=== PATIENT | male | born 1950 | race Caucasian/White ===

== ENCOUNTER 2016-08-13 03:18 | Emergency (ER) | payer OTHER ==
--- NOTE | 2016-08-13 03:51 | CT REPORT ---
HISTORY: Fall. COMPARISON: None. TECHNIQUE: Axial non-contrast images obtained from skull vertex through foramen magnum. FINDINGS: There is no evidence of a mass lesion, extra-axial fluid collection or acute hemorrhage. There is n o evidence of acute ischemia or infarction. The ventricles and sulci are normal in appearance. The visualized portions of the orbits and paranasal sinuses are normal in appearance. IMPRESSION: No CT evidence of acute intracranial abnormalities. COMMUNICATION: Dr. Rafy Knight discussed the pertinent results with the ordering physician at 08/13/2016 3:48 AM . Final Electronic Signature: This report was electronically signed by Kleber Knight MD on 3:48 AM. jesús /
--- NOTE | 2016-08-13 04:27 | RADIOLOGY REPORT ---
AP PORTABLE CHEST RADIOGRAPH CLINICAL INFORMATION: Fall. COMPARISON: None. FINDINGS: Lungs are adequately inflated. There is no consolidation, pneumothorax, or displaced fractu re. Costophrenic angles are clear. Cardiomediastinal silhouette is normal in size. IMPRESSION: 1. No acute cardiopulmonary abnormalities. 2. No displaced fractures. Final Electronic Signature: This report was electronically signed by Kleber Knight MD on 7 4:24 AM. jesús /
[2016-08-13] MEDS ORDERED: ACETAMINOPHEN 325 MG TABLET PO ONE (05:09)
--- NOTE | 2016-08-13 07:22 | ER NURSING DOCUMENTATION ---
Nurse's Notes [facility] Name:Álvaro Nunez Age:65 yrs Sex:Male :1950 Arrival Date:08/13/2016 Time:03:18 BedTrauma A Private MD: Diagnosis:Post Concussion Syndrome;Head Contusion, Unspecified Part of Head Presentation: 08/13 03:21 Notified ED Physician of [place] notified. 03:21 Acuity: MALOU 2 lb 03:23 Presenting complaint: EMS states: pt fell in bathroom, struck head, oriented x 2 no lb recollection of incident. Transition of care: Other [facility]. Mechanism of Injury: Fall. 03:23 Method Of Arrival: EMS: 420 lb 03:30 Care prior to arrival: IV initiated. Trauma event details: Injury occurred in the [facility] Injury occurred in a public building. Injury occurred August 13, 2016 Injury occurred at 03:00. Triage Assessment: 03:25 General: Appears distressed, Behavior is anxious, cooperative. Pain: Denies pain. lb Neuro: Level of Consciousness is awake, alert, obeys commands, Oriented to person, place, Solderer Assembler are equal bilaterally Moves all extremities. Speech is normal, Facial symmetry appears normal, Pupils are PERRLA, Denies blurred vision headache. Historical: - Allergies: PENICILLINS; - Home Meds: 1. Tenormin oral 2. Aspirin Oral - PMHx: Hypertension; - PSHx: hand; - Tetanus: < 10 years < 10 years. - Ebola Screening: : Patient negative for fever greater than or equal to 101.5 degrees Fahrenheit, and additional compatible Ebola Virus Disease symptoms. Patient denies exposure to infectious person. Patient denies travel to an Ebola-affected area in the 21 days before illness onset. No symptoms or risks identified at this time. . - Immunization history: Flu Vaccine < 1 year. - Social history: Smoking status: Patient states was never smoker of tobacco. Patient uses alcohol only on a social basis. - Code Status:: Full code. Screenin:30 Infectious Disease Risk None. Abuse screen: Denies threats or abuse. Denies injuries lb from another. Nutritional screening: No deficits noted. 03:32 Tuberculosis screening: No symptoms or risk factors identified. lb Primary Survey: 03:31 Airway: patent. Breathing/Chest: Respiratory pattern: regular, Respiratory effort: lb spontaneous, unlabored, Breath sounds: clear. Circulation: Cardiac rhythm: sinus rhythm Pulses: Skin color: pink. Assessment: 03:30 See Triage Assessment done by same RN. lb 03:48 Reassessment: on arrival pt perseverating. lb 05:01 Reassessment: pt c/o headache and left side rib pain. medicated. lb 06:25 Reassessment: has been up to br to void with minimal assist, steady on his feet. Is lb starting to remember bits and pieces at this time.. 07:19 General: pt still has troubles remembering the event. pt is stiff and sore but able to st move and walk.. Vital Signs: 03:28 BP 147 / 69; Pulse 70; Resp 20; Pulse Ox 99% on 2 lpm NC; Weight 64.86 kg; Height 6 ft. lb (182.88 cm); Pain 0/10; 04:21 BP 119 / 62; Pulse 74; Resp 14; Pulse Ox 93% on R/A; lb 06:25 BP 116 / 60; Pulse 76; Resp 14; Pulse Ox 94% on R/A; Pain 3/10; lb 07:19 BP 136 / 72; Pulse 79; Pulse Ox 95% on R/A; st 03:28 Body Mass Index 19.39 (64.86 kg, 182.88 cm) lb [place] Coma Score: 07:19 Eye Response: spontaneous(4). Verbal Response: confused(4). Motor Response: obeys st commands(6). Total: 14. Trauma Score (Adult): 03:32 Eye Response: spontaneous(1); Verbal Response: confused(1); Motor Response: obeys lb commands(2); Systolic BP: > 89 mm Hg(4); Respiratory Rate: 10 to 29 per min(4); [place] Score: 14; Trauma Score: 12 ED Course: 03:19 Patient arrived in ED. ma1 03:21 Alva López is Primary Nurse. lb 03:22 Triage completed. lb 03:30 Valuables Given to family. Patient has correct armband on for positive identification. lb Placed in gown. Bed in low position. Side rails up X2. 03:36 Daren Dasilva MD is Attending Physician. jm 03:[address] ds2 03:[address] ds2 04:12 Port Xray Completed. ds2 Administered Medications: 05:01 Drug: Tylenol 650 mg; Route: PO; lb 06:27 Follow up: Response: Pain is decreased lb Output: 06:25 Urine: 200ml (Voided); Total: 200ml. lb Outcome: 04:17 Discharge ordered by . roseann 07:20 Discharged to home ambulatory. st 07:20 Condition: stable 07:20 Discharge instructions given to patient, family, significant other, Instructed on discharge instructions, follow up and referral plans. 07:21 [address] ED[address] st Signatures: Kelly Saleem, RN RN Daren Avina MD MD jm Scarbrough, Dayna ds2 Alva López Melissa ri1
--- NOTE | 2016-08-13 07:22 | ER PHYSICIAN DOCUMENTATION ---
Physician Documentation [facility] Name:Álvaro Nunez Age:65 yrs Sex:Male :1950 Arrival Date:08/13/2016 Time:03:18 BedTrauma A Private MD: Daren Gallo Disposition: 08/13/16 04:17 Discharged to Home/Self Care. Impression: Post Concussion Syndrome, Head Contusion, Unspecified Part of Head. - Condition is Fair. - Discharge Instructions: Brain Concussion - CONCUSSION, No Wake Up. - Medical Reconciliation form form. - Follow up: Private Physician; When: As needed; Reason: Continuance of care. - Problem is new. - Symptoms are unchanged. HPI: 08/13 11:31 This 65 yrs old Male presents to ER via EMS with complaints of Fall Injury. 11:31 Details of fall: The patient fell from an upright position, while walking. Onset: The symptom(s)/episode began/occurred just prior to arrival. Associated injuries: The patient sustained injury to the head, contusion. Associated signs and symptoms: Pertinent positives: confusion, memory problems, Loss of consciousness: the patient experienced loss of consciousness. Severity of symptoms: in the emergency department the symptoms are unchanged. The patient has not experienced similar symptoms in the past. The patient has not recently seen a physician. heard a loud thump in the bathroom of their hotel at the [place]. She found him on the floor. When she realized how confused he was she called 911. EMS says he is perseverating pretty significantly. Pt has a LEY and L side pain in his ribs. Pt denies any other pain. . Historical: - Allergies: PENICILLINS; - Home Meds: 1. Tenormin oral 2. Aspirin Oral - PMHx: Hypertension; - PSHx: hand; - Tetanus: < 10 years < 10 years. - Ebola Screening: : Patient negative for fever greater than or equal to 101.5 degrees Fahrenheit, and additional compatible Ebola Virus Disease symptoms. Patient denies exposure to infectious person. Patient denies travel to an Ebola-affected area in the 21 days before illness onset. No symptoms or risks identified at this time. . - Immunization history: Flu Vaccine < 1 year. - Social history: Smoking status: Patient states was never smoker of tobacco. Patient uses alcohol only on a social basis. - Code Status:: Full code. ROS: 04:00 Constitutional: Negative for fever. jm 04:00 Eyes: Negative for blurry vision, visual disturbance. 04:00 ENT: Positive for injury or acute deformity, contusion. 04:00 Neck: Negative for injury or acute deformity. 04:00 Cardiovascular: Positive for chest pain. 04:00 Respiratory: Negative for cough, shortness of breath. 04:00 Abdomen/GI: Negative for abdominal pain, nausea, vomiting, diarrhea. 04:00 Back: Negative for pain at rest, pain with movement. 04:00 MS/extremity: Negative for injury or acute deformity. 04:00 Skin: Positive for abrasion(s). 04:00 Neuro: Positive for altered mental status, headache. 04:00 All other systems are negative. Exam: 04:00 Constitutional: The patient appears alert, awake. jm 04:00 Head/face: Noted is abrasion(s), that are mild, of the left cheek, contusion, that is superficial, Sinus tenderness, is not appreciated. 04:00 Eyes: Periorbital structures: ecchymosis, that is mild, on the left lower eyelid, Pupils: equal, round, and reactive to light and accomodation, Extraocular movements: intact throughout, Conjunctiva: normal. 04:00 ENT: Mouth: is normal, Voice: is normal. 04:00 Neck: C-spine: appears grossly normal, Thyroid: appears normal. 04:00 Chest/axilla: Inspection: normal, Palpation: crepitus, is not appreciated, tenderness, that is moderate, of the left lateral anterior chest and left lateral posterior chest, that totally reproduces the patient's complaints. 04:00 Cardiovascular: Rate: normal, Rhythm: regular. 04:00 Respiratory: the patient does not display signs of respiratory distress, Respirations: normal, Breath sounds: are normal. 04:00 Abdomen/GI: Bowel sounds: normal, Palpation: abdomen is soft and non-tender. 04:00 Musculoskeletal/extremity: Extremities: grossly normal except: Weight bearing: able to fully bear weight. 04:00 Neuro: Mentation: able to follow commands, confused, Memory: immediate memory is impaired, recent memory is impaired, Cranial nerves: grossly normal, Cerebellar function: normal finger to nose testing, Pt w persistent perseveration about why he is here, what happened, why he is in pain, date, time, and where he is. . 04:00 Psych: Behavior/mood is pleasant, cooperative, Affect is calm. Vital Signs: 03:28 BP 147 / 69; Pulse 70; Resp 20; Pulse Ox 99% on 2 lpm NC; Weight 64.86 kg; Height 6 ft. lb (182.88 cm); Pain 0/10; 04:21 BP 119 / 62; Pulse 74; Resp 14; Pulse Ox 93% on R/A; lb 06:25 BP 116 / 60; Pulse 76; Resp 14; Pulse Ox 94% on R/A; Pain 3/10; lb 07:19 BP 136 / 72; Pulse 79; Pulse Ox 95% on R/A; st 03:28 Body Mass Index 19.39 (64.86 kg, 182.88 cm) lb [place] Coma Score: 07:19 Eye Response: spontaneous(4). Verbal Response: confused(4). Motor Response: obeys st commands(6). Total: 14. Trauma Score (Adult): 03:32 Eye Response: spontaneous(1); Verbal Response: confused(1); Motor Response: obeys lb commands(2); Systolic BP: > 89 mm Hg(4); Respiratory Rate: 10 to 29 per min(4); [place] Score: 14; Trauma Score: 12 MDM: 03:36 Patient medically screened. 04:00 Differential diagnosis: abrasion, closed head injury, contusion. Data reviewed: vital jm signs, nurses notes, radiologic studies, and as a result, I will discharge patient. Counseling: I had a detailed discussion with the patient and/or guardian regarding: the historical points, exam findings, and any diagnostic results supporting the discharge/admit diagnosis, radiology results, the need for outpatient follow up, with the patient's primary care provider, a neurologist. ED course: CToH negative, but pt w perseveration. Pt observed in the ER for a few hours until his memory started to return. Eventually his felt comfortable taking him home. . 08/13 03:52 Order name: CAT SCAN; HEAD W/O CON [id number] EDMS 08/13 04:28 Order name: CHEST; SINGLE [place]IEW [id number] EDMS 08/13 04:02 Order name: Pulse Ox Continuous; Complete Time: 04:33 roseann Dispensed Medications: 05:01 Drug: Tylenol 650 mg; Route: PO; lb 06:27 Follow up: Response: Pain is decreased lb Signatures: Kelly Saleem, Daren Vickers RN, MD MD jm Bollock, Lynda lb
== END 2016-08-13 07:22 | disposition home or self-care (01) ==
LOC: ER 03:18
DX: S06.0X1A Concussion with loss of consciousness of 30 minutes or less, initial encounter (principal); S00.83XA Contusion of other part of head, initial encounter; S00.12XA Contusion of left eyelid and periocular area, initial encounter; S00.81XA Abrasion of other part of head, initial encounter; W19.XXXA Unspecified fall, initial encounter; Y92.59 Other trade areas as the place of occurrence of the external cause; Y93.01 Activity, walking, marching and hiking; I10 Essential (primary) hypertension; Z79.82 Long term (current) use of aspirin; Z79.899 Other long term (current) drug therapy; Z74.3 Need for continuous supervision
CPT/HCPCS: 70450; 71010; 93005; 99284; A0425; A0427